=== PATIENT | female | born 1975 | race Caucasian/White ===

== ENCOUNTER 2017-03-13 16:49 | Emergency (ER) | payer BC ==
[2017-03-13 17:00] VITALS: BP 131/72
--- NOTE | 2017-03-13 17:20 | EDM.PDOC ---
ED HPI GENERAL MEDICAL PROBLEM - General Chief Complaint: Upper Extremity Injury/Pain Stated Complaint: RIGHT HAND, 3RD FINGER INJURY Time Seen by Provider: 03/13/17 17:05 Source of Information: Reports: Patient History Limitations: Reports: No Limitations - History of Present Illness INITIAL COMMENTS - FREE TEXT/NARRATIVE: Talya presents today with complaints of injury to right 4th, 5th fingers after fall while playing tag with her children today. She reports she tripped over the edge of concrete, fell forward and developed injury to 4th, 5th fingers. - Related Data Allergies Allergy/AdvReac Type Severity Reaction Status Date / Time No Known Allergies Allergy Verified 03/13/17 17:01 Home Meds: Home Meds NK [No Known Home Meds] 03/13/17 [History] Past Medical History - Past Health History Medical/Surgical History: Denies Medical/Surgical History Social & Family History - Tobacco Use Smoking Status *Q: Never Smoker Review of Systems - Review of Systems Review Of Systems: See Below Constitutional: Reports: No Symptoms Eyes: Reports: No Symptoms Ears: Reports: No Symptoms Nose: Reports: No Symptoms Mouth/Throat: Reports: No Symptoms Respiratory: Denies: Shortness of Breath, Wheezing, Cough, Sputum Cardiovascular: Denies: Chest Pain, Edema, Lightheadedness, Palpitations, Syncope GI/Abdominal: Reports: No Symptoms Genitourinary: Reports: No Symptoms Musculoskeletal: Reports: Other (right 4th 5th finger pain, deformit to 4th DIP joint. Abrasion to 5th finger. ) Skin: Reports: Other (Abrasion to right 5th finger) Neurological: Reports: No Symptoms, Tingling Psychiatric: Reports: No Symptoms ED EXAM, GENERAL - Physical Exam Exam: See Below Free Text/Narrative:: Talya is an alert, oriented and pleasant 41 year old female presenting with pain and deformity to right 4th DIP joint after a fall forward onto concrete. She denies any other injuries, LOC or areas of pain. Noted abrasion to right 5th finger. Exam Limited By: No Limitations General Appearance: Alert, WD/WN, No Apparent Distress Eye Exam: Bilateral Eye: EOMI, Normal Inspection Ears: Normal External Exam, Normal Canal, Hearing Grossly Normal, Normal TMs Nose: Normal Inspection, Normal Mucosa, No Blood Throat/Mouth: Normal Inspection, Normal Lips, Normal Teeth, Normal Oropharynx, Normal Voice, No Airway Compromise Head: Atraumatic, Normocephalic Neck: Normal Inspection, Supple, Non-Tender, Full Range of Motion. No: Lymphadenopathy (R), Lymphadenopathy (L) Respiratory/Chest: No Respiratory Distress, Lungs Clear, Normal Breath Sounds, No Accessory Muscle Use, Chest Non-Tender Cardiovascular: Normal Peripheral Pulses, Regular Rate, Rhythm, No Edema, No Murmur, No Rub Peripheral Pulses: 2+: Radial (L), Radial (R) Back Exam: Normal Inspection, Full Range of Motion. No: CVA Tenderness (R), CVA Tenderness (L) Extremities: Normal Capillary Refill, Other (Deformity and decreased range of motion to right 4th DIP joint, full sensation. ) Neurological: Alert, Oriented, CN II-XII Intact, Normal Cognition, No Motor/ Sensory Deficits Psychiatric: Normal Affect, Normal Mood Skin Exam: Warm, Dry, Other (Abrasion to right 5th finger) Lymphatic: No Adenopathy ED TRAUMA EXTREMITY PROCEDURES - Additional/Other Procedure(s) Other (Free Text) Procedure(s): Right 4th digital block Skin cleansed with chlorhexadine Digital block completed with 2ml 1%lidocaine DIP joint reduced. Post reduction x-ray completed. Patient tolerated well, full range of motion to finger after reduction. Course - Vital Signs Last Recorded V/S: Last Vital Signs Temp 36.8 C 03/13/17 17:07 Pulse 87 03/13/17 17:07 Resp 16 03/13/17 17:07 BP 131/72 03/13/17 17:07 Pulse Ox 97 03/13/17 17:07 - Orders/Labs/Meds Orders: Active Orders 24 hr Category Date Time Status Fingers Fourth Digit Rt F8 [CR] Stat Exams 03/13/17 17:14 Taken Fingers Fourth Digit Rt F8 [CR] Stat Exams 03/13/17 17:43 Taken Meds: Medications Discontinued Medications Generic Name Dose Route Start Last Admin Trade Name Freq PRN Reason Stop Dose Admin Lidocaine HCl 5 ml 03/13/17 17:30 03/13/17 17:37 Xylocaine-Mpf 1% INJECT 03/13/17 17:31 5 ml ONETIME ONE Administration - Radiology Interpretation Free Text/Narrative:: X-ray shows: Dislocated 4th DIP joint, no acute fracture. - Re-Assessments/Exams Free Text/Narrative Re-Assessment/Exam: 03/13/17 17:55 Post reduction film shows reduced DIP joint. 03/14/17 17:56 Education on finger splint and wound care completed, patient verbalized understanding. Departure - Departure Time of Disposition: 17:56 Disposition: Home, Self-Care 01 Condition: Good Clinical Impression: Dislocation closed, finger - Discharge Information Instructions: Finger or Thumb Dislocation, [id number] Referrals: Lila Swenson PA [Primary Care Provider] - Forms: ED Department Discharge Additional Instructions: You suffered from a dislocated right 4th finger DIP joint. Use of lidocaine to complete a digital block and reduction was completed. Use finger splint at all times for two weeks (except when bathing) to prevent repeat dislocation. Do your activities as normal with use of splint. You may take ibuprofen or acetaminophen for pain as needed. You can ice the finger for 15 to 20 minutes every hour for comfort if needed. Follow up with Dr. Diana BRODY in two weeks for a recheck. Return for worsening, issues or concerns. - My Orders Last 24 Hours: My Active Orders 03/13/17 17:14 Fingers Fourth Digit Rt F8 [CR] Stat 03/13/17 17:43 Fingers Fourth Digit Rt F8 [CR] Stat - Assessment/Plan Last 24 Hours: My Active Orders 03/13/17 17:14 Fingers Fourth Digit Rt F8 [CR] Stat 03/13/17 17:43 Fingers Fourth Digit Rt F8 [CR] Stat Assessment:: Dislocated Right 4th DIP joint Digital block and reduction Splint use and care education Plan: Use of lidocaine to complete a digital block and reduction was completed. Use finger splint at all times for two weeks (except when bathing) to prevent repeat dislocation. Do activities as normal with use of splint. She may take ibuprofen or acetaminophen for pain as needed. She can ice the finger for 15 to 20 minutes every hour for comfort if needed. Follow up with Dr. Diana BRODY in two weeks for a recheck. Return for worsening, issues or concerns.
--- NOTE | 2017-03-14 09:23 | CR ---
Right fourth pre and post reduction. Findings: Initial images demonstrates dislocation at the DIP joint. The distal phalanx is dislocated posteriorly. Following closed reduction there is realignment of the DIP joint. There is no evidence f or fracture. Impression: 1. Dislocated DIP joint with successful reduction.
== END 2017-03-13 18:14 | disposition home or self-care (01) ==
LOC: JP.ED 16:49
DX: S63.294A Dislocation of distal interphalangeal joint of right ring finger, initial encounter (principal); S60.416A Abrasion of right little finger, initial encounter; W01.0XXA Fall on same level from slipping, tripping and stumbling without subsequent striking against object, initial encounter
CPT/HCPCS: 26770; 73140-26-F8; 73140-F8; 99284-25